=== PATIENT | female | born 1980 | race Caucasian/White ===

== ENCOUNTER 2017-05-26 18:25 | Emergency (ER) | payer OTHER ==
[~2017-05-26] VITALS: Ht 177.8 cm; Wt 83.9 kg
[~2017-05-26 18:25] MED LIST: CHOL100010 PO; MAGN250T8 PO; PRENTAB26 PO
[2017-05-26 18:35] VITALS: TEMP 36.8; Ht 177.8 cm; Wt 83.9 kg
[2017-05-26] MEDS ORDERED: CHOL1TAB42 PO (18:48)
[2017-05-26] MEDS ORDERED: SERT50TA PO (18:48)
[2017-05-26 19:44] LABS: ISTAT CREATININE 0.6 mg/dl (0.6-1.3); ISTAT HEMOGLOBIN 13.6 g/dl (12.0-16.0); ISTAT IONIZED CALCIUM 1.14 mmol/l (1.12-1.32)
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
[2017-05-26] MEDS ORDERED: OPTIRAY 320 IV PRN (20:30)
[2017-05-26] MEDS ORDERED: NORCO 5/325MG HOME PACK PO STA (21:05)
[2017-05-26] MEDS ORDERED: HYDR-5688 PO (21:07)
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
[2017-05-26 21:19] VITALS: BP 117/80; PULSE 99; O2SAT 98
== END 2017-05-26 21:20 | disposition home or self-care (01) ==
LOC: C.EDB 18:26 → C.EDD 21:20
DX: M54.2 Cervicalgia (principal); T14.8 Other injury of unspecified body region; R51 Headache; M79.604 Pain in right leg; S09.90XA Unspecified injury of head, initial encounter; Y04.8XXA Assault by other bodily force, initial encounter; F17.200 Nicotine dependence, unspecified, uncomplicated

== ENCOUNTER 2020-04-15 07:42 | Inpatient (IN) ==
[2020-04-15] MEDS ORDERED: OXYTOCIN 30 UNITS/500 ML BAG IV PRN ×3 (07:57→21:57)
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
[2020-04-15 08:22] LABS: Hematocrit (blood only) 34.1 % (37-47); Hemoglobin 11.7 g/dL (12.0-16.0); Mean Corpuscular Hemoglobin 32.8 pg (25-34); Mean Corpuscular Volume 95.5 fL (80-100); Mean Platelet Volume 9.8 fL (7.4-10.4); Platelet Count 213 K/uL (130-400); RDW Coefficient of Variation 12.9 % (11.5-14.5); RDW Standard Deviation 44.8 fL (36.4-46.3); Red Blood Count 3.57 M/uL (4.2-5.4); White Blood Count 9.34 K/uL (4.8-10.8)
[2020-04-15 08:23] LABS: Mean Corpuscular Hgb Conc 34.3 g/dL (32-36)
[2020-04-15] MEDS: LACTATED RINGER'S 1,000 ML IV PRN ×3 (08:46→17:01)
[2020-04-15] MEDS ORDERED: BUPIVACAINE 0.25% 30 ML VIAL ONE ×2 (12:55→17:03)
[2020-04-15] MEDS ORDERED: ePHEDrine sulfate 50 MG/ML AMP ONE (12:55)
[2020-04-15] MEDS ORDERED: fentaNYL citrate 100 MCG/2 ML VIAL ONE (12:56)
[2020-04-15] MEDS ORDERED: fentaNYL 2MCG/ML ROPIV 1.25MG/ML 100 ML BAG EPI ONE (12:56)
[2020-04-15] MEDS ORDERED: NALBUPHINE HCL INJ 10 MG/ML AMP IV PRN (13:01)
[2020-04-15] MEDS ORDERED: NALOXONE HCL 0.4 MG/1 ML VIAL/CARP IV PRN (13:01)
[2020-04-15] MEDS ORDERED: NALOXONE HCL 1 MG in SODIUM CHLORIDE 0.9% 1000ML 1,000 ML IV PRN (13:01)
[2020-04-15] MEDS ORDERED: ONDANSETRON INJ 2 MG/ML 2 ML VIAL IV PRN (13:01)
[2020-04-15] MEDS ORDERED: DiphenhydrAMINE HCL 50 MG/ML VIAL IV PRN (13:01)
--- NOTE | 2020-04-15 13:04 | Anesthesiology Consultation ---
Date of Service April 15, 2020 Assessment & Plan Chart Review Chart Review: Patient NOT seen in Pre Admission Testing and Acceptable Risk for Labor Epidural Consults Requested none ASA ASA2 Proposed Anesthesia Anesthesia Type: Labor Epidural and CSE Risk / Benefits Reviewed With: PT / POA / Parent / Guardian, Accepts Plan and Informed Consent Obtained History Surgery No known Covid 19 exposure. Height/Weight Height: 5 ft 10 in Weight: 112.491 kg Allergies Allergy/AdvReac Type Severity Reaction Status Date / Time No Known Allergies Allergy Verified 04/14/20 15:41 Medications Home Medications Medication Instructions Recorded Confirmed Last Taken [id number] 30 mg-folic acid 1.4 1 cap PO DAILY #30 ea 10/26/19 04/15/20 04/14/20 17:00 mg-dha 200 mg capsule,immed,del.rel valacyclovir 500 mg tablet 500 mg PO DAILY #30 tab 03/31/20 04/15/20 04/15/20 07:00 Active Medications Generic Name Dose Route Start Last Admin Trade Name Freq PRN Reason Stop Dose Admin Lactated Ringer's 1,000 mls @ 125 mls/hr 04/15/20 07:57 04/15/20 11:51 Lr IV 04/17/20 07:56 999 mls/hr .Q8H PRN Infusion L&D Protocol Protocol Oxytocin 30 units in 500 mls @ 9 mls/hr 04/15/20 08:50 04/15/20 12:27 Pitocin IV 04/17/20 08:49 0.54 units/hr .Q24H PRN 9 mls/hr Labor Induction/Augmentation Titration Protocol 0.54 UNITS/HR NPO Date Last Intake of Fluids: 04/15/20 Time Last Intake of Fluids: 12:30 Date Last Intake of Solids: 04/15/20 Last Intake of Solids Comment: 1000 Past Medical History Medical History Anemia Depression Endometriosis Hx of migraines Ruptured ectopic (Inactive 03/08/14) Varicella Exercise / Class Metabolic Activity II 4-5 Yardwork/Stairs/Walk up hill Past Family History Family History Grandmother (Paternal) Heart disease Mother Hypertension Osteoporosis Father Hypertension Past Surgical History Surgical History S/P ectopic S/P wisdom tooth extraction Past Anesthesia History No Hx of Anesthesia Complications and No Family Hx of Anesthesia Complications History of PONV No Hx of PONV and No Hx of Motion Sickness Social History Smoking Status: Former smoker Hx Alcohol Use: No Hx Substance Use: No Review of Systems no chest pain or sob Physical Exam Vital Signs Last Vital Signs Temp 36.7 C 04/15/20 08:08 Pulse 85 04/15/20 13:01 Resp 18 04/15/20 12:26 BP 124/74 04/15/20 11:50 Pulse Ox 94 04/15/20 13:01 ENMT Mouth: no TMJ abnormality Thyromental Distance: > or= 3.5 Finger Breadths Mallampati Class: II Neck normal visual inspection Respiratory normal respiratory effort Auscultation: lungs clear to auscultation bilaterally Cardiovascular Rate/Rhythm: regular rate and regular rhythm Musculoskeletal Spine: normal cervical ROM Neurologic moves all extremities Psychiatric Orientation: alert and oriented x 3 Testing Laboratory Results 04/15/20 08:09
[2020-04-15] MEDS: fentaNYL 2MCG/ML ROPIV 1.25MG/ML 100 ML BAG EPI PRN ×4 (13:24→19:07)
--- NOTE | 2020-04-15 13:53 | Labor Progress Brief Note ---
Date of Service April 15, 2020 Subjective Reason For Note: Routine Evaluation comfortable with epidural Assessment & Plan (1) Supervision of elderly multigravida: (2) Encounter for elective induction of labor: need more pitocin for labor. fhts categ 1. Admission and Anticipated Discharge Date Admission Date: April 15, 2020 Physical Exam Constitutional: WD/WN, vitals as above Neurologic: grossly normal Psychiatric: A+Ox3, euthymic affect Genitourinary: Manual OB Exam: + cervical dilation (4), + cervical effacement 60% and + station -2 OB Exam Monitor Tracing: + external FHT monitor used (categ 1), + external uterine monitor used (q4 pit at 9), + category I and + normal FHT variability cephalic not well against the cx. Results & Data ([facility]) Vital Signs (Past 12 Hours) Vital Signs Temp Pulse Resp BP Pulse Ox 04/15/20 13:46 96 H 95 04/15/20 13:45 92 H 91/51 L 04/15/20 13:42 102 H 114/61 04/15/20 13:41 100 H 96 04/15/20 13:36 96 H 122/67 95 04/15/20 13:33 101 H 70/41 L 90 04/15/20 13:32 92 H 69/38 L 04/15/20 13:31 91 H 85/47 L 95 04/15/20 13:28 101 H 90/55 L 04/15/20 13:26 96 H 96 04/15/20 13:25 96 H 98/53 L 04/15/20 13:23 85 100/56 L 04/15/20 13:21 93 H 95 04/15/20 13:19 97 H 127/87 04/15/20 13:16 81 124/83 94 04/15/20 13:14 83 94 04/15/20 13:11 85 96 04/15/20 13:06 93 H 96 04/15/20 13:01 85 94 04/15/20 12:26 18 04/15/20 11:50 77 18 124/74 04/15/20 10:00 80 18 122/77 04/15/20 09:32 18 04/15/20 09:10 18 04/15/20 09:09 89 122/78 04/15/20 09:02 18 04/15/20 08:40 18 06/19/20 08:08 98.1 F 103 H 18 120/80 Coding Level of Care Code None Diagnoses Supervision of elderly multigravida O09.529 Encounter for elective induction of labor Z34.90
[2020-04-15] MEDS: ePHEDrine sulfate 50 MG/ML AMP IV PRN ×3 (16:13→17:34)
[2020-04-15] MEDS ORDERED: fentaNYL 2MCG/ML ROPIV 1.25MG/ML 100 ML BAG EPI PRN (17:14)
--- NOTE | 2020-04-15 17:27 | Labor Progress Brief Note ---
Date of Service April 15, 2020 Subjective Late entry, pt seen around 4pm Assessment & Plan (1) Encounter for elective induction of labor: (2) Supervision of elderly multigravida: good cx change, fse applied due to unable to trace fetus well. cont with pit. Admission and Anticipated Discharge Date Admission Date: April 15, 2020 Physical Exam Constitutional: WD/WN, vitals as above Genitourinary: Manual OB Exam: + cervical dilation (5), + cervical effacement 80% and + station -2 OB Exam Monitor Tracing: + external FHT monitor used (not tracing well ) and + scalp electrode used (placed ) Results & Data ([facility]) Vital Signs (Past 12 Hours) Vital Signs Temp Pulse Resp BP Pulse Ox 04/15/20 17:22 87 97 04/15/20 17:20 98.1 F 04/15/20 17:19 84 109/54 L 04/15/20 17:17 90 99 04/15/20 17:14 92 H 93/53 L 04/15/20 17:12 93 H 98 04/15/20 17:07 92 H 108/53 L 99 04/15/20 17:02 94 H 107/51 L 98 04/15/20 16:57 84 97 04/15/20 16:52 115 H 99 04/15/20 16:51 101 H 84 L 04/15/20 16:47 98 H 131/82 98 04/15/20 16:42 100 H 99 04/15/20 16:37 97 H 97 04/15/20 16:32 101 H 128/71 100 04/15/20 16:27 103 H 97 04/15/20 16:22 97 H 96 04/15/20 16:17 97 H 97 04/15/20 16:16 90 107/63 04/15/20 16:12 94 H 97 04/15/20 16:07 97 H 96 04/15/20 16:02 100 H 103/63 96 04/15/20 15:57 100 H 95 04/15/20 15:52 97 H 96 04/15/20 15:47 91 H 105/65 94 04/15/20 15:42 101 H 97 04/15/20 15:37 85 96 04/15/20 15:32 105 H 123/60 96 04/15/20 15:27 83 97 04/15/20 15:22 97 H 97 04/15/20 15:17 93 H 121/61 96 04/15/20 15:12 97 H 98 04/15/20 15:10 98.1 F 18 04/15/20 15:07 91 H 96 04/15/20 15:02 92 H 108/56 L 96 04/15/20 14:57 81 96 04/15/20 14:52 86 95 04/15/20 14:42 82 95 04/15/20 14:37 94 H 94 04/15/20 14:32 93 H 104/55 L 98 04/15/20 14:27 91 H 96 04/15/20 14:22 98 H 95 04/15/20 14:17 96 H 16 111/55 L 96 04/15/20 14:12 83 16 95 04/15/20 14:07 93 H 95 04/15/20 14:02 101 H 104/53 L 96 04/15/20 13:56 87 94 04/15/20 13:51 94 H 95 04/15/20 13:46 96 H 95 04/15/20 13:45 92 H 91/51 L 04/15/20 13:42 102 H 114/61 04/15/20 13:41 100 H 96 04/15/20 13:36 96 H 122/67 95 04/15/20 13:33 101 H 70/41 L 90 04/15/20 13:32 92 H 69/38 L 04/15/20 13:31 91 H 85/47 L 95 04/15/20 13:28 101 H 90/55 L 04/15/20 13:26 96 H 96 04/15/20 13:25 96 H 98/53 L 04/15/20 13:23 85 100/56 L 04/15/20 13:21 93 H 18 95 04/15/20 13:19 97 H 127/87 04/15/20 13:16 81 124/83 94 04/15/20 13:14 83 94 04/15/20 13:11 85 96 04/15/20 13:06 93 H 96 04/15/20 13:01 85 94 04/15/20 12:26 18 04/15/20 12:10 18 04/15/20 11:50 77 18 124/74 04/15/20 11:10 18 04/15/20 10:40 18 04/15/20 10:00 80 18 122/77 04/15/20 09:40 18 04/15/20 09:32 18 04/15/20 09:10 18 04/15/20 09:09 89 122/78 04/15/20 09:02 18 04/15/20 08:40 18 04/15/20 08:08 98.1 F 103 H 18 120/80 Coding Level of Care Code None Diagnoses Encounter for elective induction of labor Z34.90 Supervision of elderly multigravida O09.529
--- NOTE | 2020-04-15 18:11 | Labor Progress Brief Note ---
Date of Service April 15, 2020 Subjective feels some rectal pressure Assessment & Plan (1) Supervision of elderly multigravida: (2) Encounter for elective induction of labor: pushed with one ctx, ant lip spont reduced. will reeval in 30min and begin 2nd stage. Admission and Anticipated Discharge Date Admission Date: April 15, 2020 Physical Exam Constitutional: WD/WN, vitals as above Genitourinary: Manual OB Exam: + cervical dilation 10 cm, + cervical effacement 100% and + station + 1 OB Exam Monitor Tracing: + external FHT monitor used (115 mod variability), + external uterine monitor used (q2), + category II and + normal FHT variability Results & Data ([facility]) Vital Signs (Past 12 Hours) Vital Signs Temp Pulse Resp BP Pulse Ox 04/15/20 18:02 120 H 101/54 L 97 04/15/20 17:57 117 H 98 04/15/20 17:52 115 H 97 04/15/20 17:47 103 H 95/54 L 95 04/15/20 17:42 113 H 115/61 97 04/15/20 17:38 130 H 113/55 L 04/15/20 17:37 134 H 96 04/15/20 17:36 82 133/63 04/15/20 17:32 95 H 87/51 L 97 04/15/20 17:30 98 H 79/43 L 04/15/20 17:28 103 H 85/49 L 84 L 04/15/20 17:27 88 98 04/15/20 17:22 87 97 04/15/20 17:20 98.1 F 04/15/20 17:19 84 109/54 L 04/15/20 17:17 90 99 04/15/20 17:14 92 H 93/53 L 04/15/20 17:12 93 H 98 04/15/20 17:07 92 H 108/53 L 99 04/15/20 17:02 94 H 107/51 L 98 04/15/20 16:57 84 97 04/15/20 16:52 115 H 99 04/15/20 16:51 101 H 84 L 04/15/20 16:47 98 H 131/82 98 04/15/20 16:42 100 H 99 04/15/20 16:37 97 H 97 06/19/20 16:32 101 H 128/71 100 04/15/20 16:27 103 H 97 04/15/20 16:22 97 H 96 04/15/20 16:17 97 H 97 04/15/20 16:16 90 107/63 04/15/20 16:12 94 H 97 04/15/20 16:07 97 H 96 04/15/20 16:02 100 H 103/63 96 04/15/20 15:57 100 H 95 04/15/20 15:52 97 H 96 04/15/20 15:47 91 H 105/65 94 04/15/20 15:42 101 H 97 04/15/20 15:37 85 96 04/15/20 15:32 105 H 123/60 96 04/15/20 15:27 83 97 04/15/20 15:22 97 H 97 04/15/20 15:17 93 H 121/61 96 04/15/20 15:12 97 H 98 04/15/20 15:10 98.1 F 18 04/15/20 15:07 91 H 96 04/15/20 15:02 92 H 108/56 L 96 04/15/20 15:00 18 04/15/20 14:57 81 96 04/15/20 14:52 86 95 04/15/20 14:42 82 95 04/15/20 14:40 18 04/15/20 14:37 94 H 94 04/15/20 14:32 93 H 18 104/55 L 98 04/15/20 14:27 91 H 96 04/15/20 14:22 98 H 95 04/15/20 14:17 96 H 16 111/55 L 96 04/15/20 14:12 83 16 95 04/15/20 14:10 18 04/15/20 14:07 93 H 95 04/15/20 14:02 101 H 104/53 L 96 04/15/20 13:56 87 94 04/15/20 13:51 94 H 95 04/15/20 13:50 98.2 F 18 04/15/20 13:46 96 H 95 04/15/20 13:45 92 H 91/51 L 04/15/20 13:42 102 H 114/61 04/15/20 13:41 100 H 96 04/15/20 13:40 18 04/15/20 13:36 96 H 122/67 95 04/15/20 13:33 101 H 70/41 L 90 04/15/20 13:32 92 H 69/38 L 04/15/20 13:31 91 H 85/47 L 95 04/15/20 13:28 101 H 90/55 L 04/15/20 13:26 96 H 96 04/15/20 13:25 96 H 98/53 L 04/15/20 13:23 85 100/56 L 04/15/20 13:21 93 H 18 95 04/15/20 13:19 97 H 127/87 04/15/20 13:16 81 124/83 94 04/15/20 13:14 83 94 04/15/20 13:11 85 96 04/15/20 13:10 18 04/15/20 13:06 93 H 96 04/15/20 13:01 85 94 04/15/20 12:40 18 04/15/20 12:26 18 04/15/20 12:10 18 04/15/20 11:50 98.1 F 77 18 124/74 04/15/20 11:10 18 04/15/20 10:40 18 04/15/20 10:00 80 18 122/77 04/15/20 09:40 18 04/15/20 09:32 18 04/15/20 09:10 18 04/15/20 09:09 89 122/78 04/15/20 09:02 18 04/15/20 08:40 18 04/15/20 08:08 98.1 F 103 H 18 120/80 Coding Level of Care Code None Diagnoses Supervision of elderly multigravida O09.529 Encounter for elective induction of labor Z34.90
--- NOTE | 2020-04-15 19:51 | Labor Progress Brief Note ---
Date of Service April 15, 2020 Subjective denies pain, feels pressure Assessment & Plan (1) Encounter for elective induction of labor: cont 2nd stage, vary positions. fhts categ 2. Admission and Anticipated Discharge Date Admission Date: April 15, 2020 Physical Exam Constitutional: WD/WN, vitals as above Genitourinary: Manual OB Exam: + cervical dilation 10 cm, + cervical effacement 100% and + station + 3 OB Exam Monitor Tracing: + scalp electrode used, + external uterine monitor used (q2), + category II, + normal FHT variability and + variable decelerations Results & Data ([facility]) Vital Signs (Past 12 Hours) Vital Signs Temp Pulse Resp BP Pulse Ox 04/15/20 19:47 137 H 98/55 L 88 L 04/15/20 19:45 117 H 83 L 04/15/20 19:42 128 H 87 L 04/15/20 19:39 130 H 85 L 04/15/20 19:37 132 H 90 04/15/20 19:36 144 H 108/56 L 04/15/20 19:33 110 H 88 L 04/15/20 19:32 110 H 95 04/15/20 19:29 18 04/15/20 19:27 105 H 95 04/15/20 19:25 108 H 98/56 L 04/15/20 19:22 107 H 95 04/15/20 19:17 107 H 95 04/15/20 19:16 107 H 97/57 L 04/15/20 19:12 121 H 99 04/15/20 19:10 98.2 F 20 04/15/20 19:07 115 H 96 04/15/20 19:06 114 H 94/53 L 04/15/20 19:02 110 H 96 04/15/20 18:57 109 H 95 20 18:56 114 H 86/50 L 04/15/20 18:52 111 H 96 20 18:49 114 H 85 L 04/15/20 18:47 111 H 97 20 18:46 137 H 159/58 H 04/15/20 18:42 107 H 84 L 20 18:37 97 H 99 04/15/20 18:36 109 H 100/55 L 04/15/20 18:32 108 H 97 04/15/20 18:27 107 H 95 04/15/20 18:26 105 H 101/61 04/15/20 18:22 120 H 96 04/15/20 18:17 113 H 97 04/15/20 18:15 110 H 102/54 L 04/15/20 18:12 122 H 97 04/15/20 18:07 117 H 96 04/15/20 18:06 109 H 111/59 L 04/15/20 18:02 120 H 101/54 L 97 04/15/20 17:57 117 H 98 04/15/20 17:52 115 H 97 04/15/20 17:47 103 H 95/54 L 95 04/15/20 17:42 113 H 115/61 97 04/15/20 17:38 130 H 113/55 L 04/15/20 17:37 134 H 96 04/15/20 17:36 82 133/63 04/15/20 17:32 95 H 87/51 L 97 04/15/20 17:30 98 H 79/43 L 04/15/20 17:28 103 H 85/49 L 84 L 04/15/20 17:27 88 98 04/15/20 17:22 87 97 04/15/20 17:20 98.1 F 04/15/20 17:19 84 109/54 L 04/15/20 17:17 90 99 04/15/20 17:14 92 H 93/53 L 04/15/20 17:12 93 H 98 04/15/20 17:07 92 H 108/53 L 99 04/15/20 17:02 94 H 107/51 L 98 04/15/20 16:57 84 97 04/15/20 16:52 115 H 99 04/15/20 16:51 101 H 84 L 04/15/20 16:47 98 H 131/82 98 04/15/20 16:42 100 H 99 04/15/20 16:37 97 H 97 04/15/20 16:32 101 H 128/71 100 04/15/20 16:27 103 H 97 04/15/20 16:22 97 H 96 04/15/20 16:17 97 H 97 04/15/20 16:16 90 107/63 04/15/20 16:12 94 H 97 04/15/20 16:07 97 H 96 04/15/20 16:02 100 H 103/63 96 04/15/20 15:57 100 H 95 04/15/20 15:52 97 H 96 04/15/20 15:47 91 H 105/65 94 04/15/20 15:42 101 H 97 04/15/20 15:37 85 96 04/15/20 15:32 105 H 123/60 96 04/15/20 15:27 83 97 04/15/20 15:22 97 H 97 04/15/20 15:17 93 H 121/61 96 04/15/20 15:12 97 H 98 04/15/20 15:10 98.1 F 18 04/15/20 15:07 91 H 96 04/15/20 15:02 92 H 108/56 L 96 04/15/20 15:00 18 04/15/20 14:57 81 96 04/15/20 14:52 86 95 04/15/20 14:42 82 95 04/15/20 14:40 18 04/15/20 14:37 94 H 94 04/15/20 14:32 93 H 18 104/55 L 98 04/15/20 14:27 91 H 96 04/15/20 14:22 98 H 95 04/15/20 14:17 96 H 16 111/55 L 96 04/15/20 14:12 83 16 95 04/15/20 14:10 18 04/15/20 14:07 93 H 95 04/15/20 14:02 101 H 104/53 L 96 04/15/20 13:56 87 94 04/15/20 13:51 94 H 95 04/15/20 13:50 98.2 F 18 04/15/20 13:46 96 H 95 04/15/20 13:45 92 H 91/51 L 04/15/20 13:42 102 H 114/61 04/15/20 13:41 100 H 96 04/15/20 13:40 18 04/15/20 13:36 96 H 122/67 95 04/15/20 13:33 101 H 70/41 L 90 04/15/20 13:32 92 H 69/38 L 04/15/20 13:31 91 H 85/47 L 95 04/15/20 13:28 101 H 90/55 L 04/15/20 13:26 96 H 96 06/19/20 13:25 96 H 98/53 L 04/15/20 13:23 85 100/56 L 04/15/20 13:21 93 H 18 95 04/15/20 13:19 97 H 127/87 04/15/20 13:16 81 124/83 94 04/15/20 13:14 83 94 04/15/20 13:11 85 96 04/15/20 13:10 18 04/15/20 13:06 93 H 96 04/15/20 13:01 85 94 04/15/20 12:40 18 04/15/20 12:26 18 04/15/20 12:10 18 04/15/20 11:50 98.1 F 77 18 124/74 04/15/20 11:10 18 04/15/20 10:40 18 04/15/20 10:00 80 18 122/77 04/15/20 09:40 18 04/15/20 09:32 18 04/15/20 09:10 18 04/15/20 09:09 89 122/78 04/15/20 09:02 18 04/15/20 08:40 18 04/15/20 08:08 98.1 F 103 H 18 120/80 Coding Level of Care Code None Diagnoses Encounter for elective induction of labor Z34.90
--- NOTE | 2020-04-15 21:43 | Delivery Summary ---
Vaginal Delivery Summary Date of Service April 15, 2020 The patient dilated to complete and pushed to deliver a viable female infant Apgars 8 and 9 via over 2nd degree perineal laceration. Mouth and nose bulb suctioned at perineum. Shoulders and body delivered with ease. was vigorous and crying at . Cord clamped at 30 seconds of life and to maternal abdomen where the cord was then doubly clamped and cut. Placenta delivered spontaneously and intact, three-vessel cord. Hemostasis achieved with dilute pitocin and uterine massage and drainage of the bladder for approximately 150 cc under sterile conditions. Laceration repaired in usual fashion with 3-0 and 2-0 vicryl. Cervix and sulci intact. EBL 300 cc. Mother and baby stable recovery. [facility] Vaginal Delivery Charge Vaginal Delivery Codes: 10948 global code for the antepartum, delivery, and post-
[2020-04-15] MEDS ORDERED: OXYCODONE/ACETAMINOPHEN 5mg/325mg TAB PO PRN (21:57)
[2020-04-15] MEDS ORDERED: ACETAMINOPHEN 325 MG TAB PO PRN (21:57)
[2020-04-15] MEDS ORDERED: DIPHTHERIA/TETANUS/PERTUSSIS 0.5 ML SYR/VIAL IM ONE (21:57)
[2020-04-15] MEDS ORDERED: SUPERCREAM 0.870% 15 GM JAR EXT PRN (21:57)
[2020-04-15] MEDS ORDERED: HYDROCORTISONE ACETATE 25 MG SUPP PR PRN (21:57)
[2020-04-15] MEDS ORDERED: BENZOCAINE 20% AER SPR 82.5 GM CAN EXT PRN (21:57)
[2020-04-15] MEDS ORDERED: OXYTOCIN 20 UNITS in LACTATED RINGER'S 1,000 ML IV SCH (22:05)
[2020-04-15] MEDS: IBUPROFEN 600 MG TAB PO PRN (23:03)
[2020-04-16 06:01] LABS: Hematocrit (blood only) 30.1 % (37-47)
--- NOTE | 2020-04-16 06:58 | Obstetrical Progress Note ---
Date of Service April 16, 2020 Assessment & Plan (1) exam: stable, routine care. breast, rh pos, ri. Subjective Ambulation: ambulating normally Voiding: no voiding problems Diet Tolerance:: regular diet Lochia:: Small Feeding Type:: breast feeding denies complaints. hgb noted. Physical Exam Constitutional WD/WN, vitals as above Respiratory normal respiratory effort, lungs clear to auscultation Cardiovascular Rate/Rhythm: regular rate and regular rhythm Gastrointestinal (Abdomen) Inspection/Auscultation: abdomen normal to inspection Percussion/Palpation: abdomen soft Fundus firm 2cm down Musculoskeletal nt calves no edema Neurologic grossly normal Psychiatric A+Ox3, euthymic affect Results & Data ([facility]) Vital Signs (Past 12 Hours) Vital Signs Temp Pulse Pulse Resp BP BP Pulse Ox 04/16/20 04:15 97.9 F 101 H 18 105/69 04/16/20 00:20 98.2 F 103 H 18 109/70 04/15/20 23:40 111 H 118/60 04/15/20 23:25 102 H 20 121/66 04/15/20 23:10 113 H 112/58 L 04/15/20 22:55 114 H 18 112/67 04/15/20 22:40 107 H 110/70 04/15/20 22:25 107 H 18 110/70 04/15/20 22:10 127 H 18 132/70 04/15/20 21:56 139 H 106/66 04/15/20 21:55 130 H 20 113/57 L 04/15/20 21:40 130 H 20 113/57 L 04/15/20 21:25 139 H 20 111/55 L 04/15/20 21:23 137 H 93 04/15/20 21:18 140 H 94 04/15/20 21:16 141 H 124/59 L 04/15/20 21:13 138 H 94 04/15/20 21:08 137 H 94 04/15/20 21:05 135 H 87 L 04/15/20 21:03 137 H 97 04/15/20 21:01 126 H 117/66 04/15/20 20:58 136 H 96 04/15/20 20:56 130 H 86 L 04/15/20 20:53 140 H 95 04/15/20 20:50 98.2 F 04/15/20 20:47 143 H 94 04/15/20 20:46 131 H 114/65 04/15/20 20:45 123 H 18 87 L 04/15/20 20:42 145 H 80 L 04/15/20 20:37 120 H 95 04/15/20 20:32 133 H 94 04/15/20 20:30 20 06 20:27 123 H 93 04/15/20 20:22 123 H 95 04/15/20 20:19 122 H 88 L 04/15/20 20:17 131 H 96 04/15/20 20:15 118 H 20 94/50 L 04/15/20 20:12 140 H 97 04/15/20 20:07 144 H 94 04/15/20 20:06 140 H 91 04/15/20 20:02 129 H 94 04/15/20 19:59 18 04/15/20 19:57 128 H 118/57 L 95 04/15/20 19:52 138 H 96 04/15/20 19:47 137 H 98/55 L 88 L 04/15/20 19:45 117 H 83 L 04/15/20 19:42 128 H 87 L 04/15/20 19:39 130 H 85 L 04/15/20 19:37 132 H 90 04/15/20 19:36 144 H 108/56 L 04/15/20 19:33 110 H 88 L 04/15/20 19:32 110 H 95 04/15/20 19:29 18 04/15/20 19:27 105 H 95 04/15/20 19:25 108 H 98/56 L 04/15/20 19:22 107 H 95 04/15/20 19:17 107 H 95 04/15/20 19:16 107 H 97/57 L 04/15/20 19:12 121 H 99 04/15/20 19:10 98.2 F 20 04/15/20 19:07 115 H 96 04/15/20 19:06 114 H 94/53 L 04/15/20 19:02 110 H 96
--- NOTE | 2020-04-16 08:21 | Anesthesiology Progress Note ---
Date of Service April 16, 2020 Anesthesia Post Procedure Vital Signs Vital Signs: Temp Pulse Pulse Resp BP BP Pulse Ox 04/16/20 04:15 36.6 C 101 H 18 105/69 04/16/20 00:20 36.8 C 103 H 18 109/70 04/15/20 23:40 111 H 118/60 04/15/20 23:25 102 H 20 121/66 04/15/20 23:10 113 H 112/58 L 04/15/20 22:55 114 H 18 112/67 04/15/20 22:40 107 H 110/70 04/15/20 22:25 107 H 18 110/70 04/15/20 22:10 127 H 18 132/70 04/15/20 21:56 139 H 106/66 04/15/20 21:55 130 H 20 113/57 L 04/15/20 21:40 130 H 20 113/57 L 04/15/20 21:25 139 H 20 111/55 L 04/15/20 21:23 137 H 93 04/15/20 21:18 140 H 94 04/15/20 21:16 141 H 124/59 L 04/15/20 21:13 138 H 94 04/15/20 21:08 137 H 94 04/15/20 21:05 135 H 87 L 04/15/20 21:03 137 H 97 04/15/20 21:01 126 H 117/66 04/15/20 20:58 136 H 96 04/15/20 20:56 130 H 86 L 04/15/20 20:53 140 H 95 04/15/20 20:50 36.8 C 04/15/20 20:47 143 H 94 04/15/20 20:46 131 H 114/65 04/15/20 20:45 123 H 18 87 L 04/15/20 20:42 145 H 80 L 04/15/20 20:37 120 H 95 04/15/20 20:32 133 H 94 04/15/20 20:30 20 04/15/20 20:27 123 H 93 04/15/20 20:22 123 H 95 04/15/20 20:19 122 H 88 L 04/15/20 20:17 131 H 96 04/15/20 20:15 118 H 20 94/50 L 04/15/20 20:12 140 H 97 04/15/20 20:07 144 H 94 04/15/20 20:06 140 H 91 04/15/20 20:02 129 H 94 04/15/20 19:59 18 04/15/20 19:57 128 H 118/57 L 95 04/15/20 19:52 138 H 96 04/15/20 19:47 137 H 98/55 L 88 L 04/15/20 19:45 117 H 83 L 04/15/20 19:42 128 H 87 L 04/15/20 19:39 130 H 85 L 04/15/20 19:37 132 H 90 04/15/20 19:36 144 H 108/56 L 04/15/20 19:33 110 H 88 L 04/15/20 19:32 110 H 95 04/15/20 19:29 18 04/15/20 19:27 105 H 95 04/15/20 19:25 108 H 98/56 L 04/15/20 19:22 107 H 95 04/15/20 19:17 107 H 95 04/15/20 19:16 107 H 97/57 L 04/15/20 19:12 121 H 99 04/15/20 19:10 36.8 C 20 04/15/20 19:07 115 H 96 04/15/20 19:06 114 H 94/53 L 04/15/20 19:02 110 H 96 04/15/20 18:57 109 H 95 04/15/20 18:56 114 H 86/50 L 04/15/20 18:52 111 H 96 04/15/20 18:49 114 H 85 L 04/15/20 18:47 111 H 97 04/15/20 18:46 137 H 159/58 H 04/15/20 18:42 107 H 84 L 04/15/20 18:37 97 H 99 04/15/20 18:36 109 H 100/55 L 04/15/20 18:32 108 H 97 04/15/20 18:27 107 H 95 04/15/20 18:26 105 H 101/61 04/15/20 18:22 120 H 96 04/15/20 18:17 113 H 97 04/15/20 18:15 110 H 102/54 L 04/15/20 18:12 122 H 97 04/15/20 18:07 117 H 96 04/15/20 18:06 109 H 111/59 L 04/15/20 18:02 120 H 101/54 L 97 04/15/20 17:57 117 H 98 04/15/20 17:52 115 H 97 04/15/20 17:47 103 H 95/54 L 95 04/15/20 17:42 113 H 115/61 97 04/15/20 17:38 130 H 113/55 L 04/15/20 17:37 134 H 96 04/15/20 17:36 82 133/63 04/15/20 17:32 95 H 87/51 L 97 04/15/20 17:30 98 H 79/43 L 04/15/20 17:28 103 H 85/49 L 84 L 04/15/20 17:27 88 98 04/15/20 17:22 87 97 04/15/20 17:20 36.7 C 04/15/20 17:19 84 109/54 L 04/15/20 17:17 90 99 04/15/20 17:14 92 H 93/53 L 04/15/20 17:12 93 H 98 04/15/20 17:07 92 H 108/53 L 99 04/15/20 17:02 94 H 107/51 L 98 04/15/20 16:57 84 97 04/15/20 16:52 115 H 99 04/15/20 16:51 101 H 84 L 04/15/20 16:47 98 H 131/82 98 04/15/20 16:42 100 H 99 04/15/20 16:37 97 H 97 04/15/20 16:32 101 H 128/71 100 04/15/20 16:27 103 H 97 04/15/20 16:22 97 H 96 04/15/20 16:17 97 H 97 04/15/20 16:16 90 107/63 04/15/20 16:12 94 H 97 04/15/20 16:07 97 H 96 04/15/20 16:02 100 H 103/63 96 04/15/20 15:57 100 H 95 04/15/20 15:52 97 H 96 04/15/20 15:47 91 H 105/65 94 04/15/20 15:42 101 H 97 04/15/20 15:37 85 96 04/15/20 15:32 105 H 123/60 96 04/15/20 15:27 83 97 04/15/20 15:22 97 H 97 04/15/20 15:17 93 H 121/61 96 04/15/20 15:12 97 H 98 04/15/20 15:10 36.7 C 18 04/15/20 15:07 91 H 96 04/15/20 15:02 92 H 108/56 L 96 04/15/20 15:00 18 04/15/20 14:57 81 96 04/15/20 14:52 86 95 04/15/20 14:42 82 95 04/15/20 14:40 18 04/15/20 14:37 94 H 94 04/15/20 14:32 93 H 18 104/55 L 98 04/15/20 14:27 91 H 96 04/15/20 14:22 98 H 95 04/15/20 14:17 96 H 16 111/55 L 96 04/15/20 14:12 83 16 95 04/15/20 14:10 18 04/15/20 14:07 93 H 95 04/15/20 14:02 101 H 104/53 L 96 04/15/20 13:56 87 94 04/15/20 13:51 94 H 95 04/15/20 13:50 36.8 C 18 04/15/20 13:46 96 H 95 04/15/20 13:45 92 H 91/51 L 04/15/20 13:42 102 H 114/61 04/15/20 13:41 100 H 96 04/15/20 13:40 18 04/15/20 13:36 96 H 122/67 95 04/15/20 13:33 101 H 70/41 L 90 04/15/20 13:32 92 H 69/38 L 04/15/20 13:31 91 H 85/47 L 95 04/15/20 13:28 101 H 90/55 L 04/15/20 13:26 96 H 96 04/15/20 13:25 96 H 98/53 L 04/15/20 13:23 85 100/56 L 04/15/20 13:21 93 H 18 95 04/15/20 13:19 97 H 127/87 04/15/20 13:16 81 124/83 94 04/15/20 13:14 83 94 04/15/20 13:11 85 96 04/15/20 13:10 18 04/15/20 13:06 93 H 96 04/15/20 13:01 85 94 04/15/20 12:40 18 04/15/20 12:26 18 04/15/20 12:10 18 04/15/20 11:50 36.7 C 77 18 124/74 04/15/20 11:10 18 04/15/20 10:40 18 04/15/20 10:00 80 18 122/77 04/15/20 09:40 18 04/15/20 09:32 18 04/15/20 09:10 18 04/15/20 09:09 89 122/78 04/15/20 09:02 18 04/15/20 08:40 18 Pain Intensity Lower Perineal: Pain Intensity: 0 Transfer of Care Handoff Completed per policy Notes Mental Status: alert / awake / arousable and participated in evaluation Patient Amnestic to Procedure: Yes Nausea / Vomiting: adequately controlled Pain: adequately controlled Airway Patency, RR, SpO2: stable & adequate BP & HR: stable & adequate Hydration State: stable & adequate Anesthetic Complications: no major complications apparent and Pt Satisfied with anesthetic care
[2020-04-16] MEDS: DOCUSATE SODIUM 100 MG CAP PO SCH ×2 (09:36→20:24)
[2020-04-16] MEDS: IBUPROFEN 600 MG TAB PO PRN ×2 (09:37→16:40)
[2020-04-17] MEDS: IBUPROFEN 600 MG TAB PO PRN ×2 (06:34→11:21)
[2020-04-17] MEDS: DOCUSATE SODIUM 100 MG CAP PO SCH (08:02)
--- NOTE | 2020-04-17 09:06 | Obstetrical Progress Note ---
Date of Service April 17, 2020 Assessment & Plan (1) exam: Day 2 s/p . Doing well. Stable for discharge. Subjective Ambulation: ambulating normally Voiding: no voiding problems Passing Gas:: Yes Diet Tolerance:: regular diet Lochia:: Moderate Physical Exam Constitutional WD/WN, vitals as above Respiratory normal respiratory effort; no respiratory distress and no labored breathing Gastrointestinal (Abdomen) Inspection/Auscultation: abdomen normal to inspection; abdomen not distended Percussion/Palpation: abdomen soft; abdomen nontender, no guarding and abdomen not rigid Genitourinary OB Exam Abdomen: + fundal height Fundus: + firm and + relation to umbilicus (Below); not tender and not boggy Results & Data ([facility]) Vital Signs (Past 12 Hours) Vital Signs Temp Pulse Resp BP 04/17/20 00:30 37.0 C 90 20 115/62
== END 2020-04-17 12:23 | disposition home or self-care (01) | DRG 807 ==
LOC: 4S1 07:42 → 4S2 14:44 → 4S1 14:47 → 4S2 04-16 00:36